=== PATIENT | female | born 1955 | race Caucasian/White ===

== ENCOUNTER 2020-03-12 11:42 | Outpatient (REF) | payer BC, SELFPAY ==
--- NOTE | 2020-03-12 | XR_ITS ---
EXAMINATION: XR SINUSES CLINICAL INFORMATION: Sinus congestion COMPARISON: None TECHNIQUE: The sinuses are imaged in 4 views. FINDINGS: There is no mucosal thickening or polypoid mass or visible air-fluid levels. No sinus expansion or bony thickening or sclerosis is seen. XR/XR sinus min 3V IMPRESSION: Unremarkable examination.
== END 2020-03-12 11:43 | disposition home or self-care (01) ==
LOC: HO.XRAY 11:42
PROVIDERS: PCP Internal Medicine; Visit Provider Internal Medicine
DX: R09.81 Nasal congestion (principal)
CPT/HCPCS: 70220

== ENCOUNTER 2022-08-27 07:23 | Outpatient (AMB) | payer MEDICARE, SELFPAY ==
--- NOTE | 2022-08-27 07:30 | MHC.PC.OV ---
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 Accompanied by: Self / Same As Patient Allergies hydroxyzine [From Atarax] Allergy (Severe, Verified 08/27/22 07:45) shock Medication List - Last Reconciled 08/27/22 by Sabiha Collier MD albuterol sulfate 90 mcg/actuation 2 puffs inhalation Q6H PRN Tobacco use date assessed: 08/27/22 Fall risk assessment: No Falls in past year Last assessed Fall Risk: 08/27/22 Dental Screening Dental Screen Date: 08/27/22 Did you have a dental visit in the last 12 months?: No Did you have a dental problem in the last 6 months where you did not have access to dental care?: No Was dental information given to patient?: Patient has dentist HPI HPI Comments History of Present Illness Details This is a 66-year-old female with mild persistent asthma, pure hypercholesterolemia and history of bladder cancer in 2013 that comes today to establish care. She use rescue inhaler less than once a month trigger by animals. Cholesterol was elevated in 2019 and this will be repeated. Low-cholesterol diet was advised. Has bladder cancer in 2013 and follows with Urology once a year. She also has history of colon polyps and requires colonoscopy every 5 years. Last colonoscopy was less than 5 years ago. Last mammogram was less than a year ago and was normal. No chest pain or shortness of breath. No change in bowel or bladder habits. She had low red blood cell months that will be repeated. Denies any active bleeding. [facility] Surgical History History of appendectomy History of bladder surgery Family History Mother Breast cancer Kidney failure Hypertension Neuralgia Father Lymphoma Social History Housing: House Alcohol intake: current Alcohol intake frequency: holidays/special occasions only Alcohol type: wine Patient Tobacco Use Status: Former Tobacco user Tobacco use type: Cigarette e-Cigarette/Vaping Use: Never Used Second Hand Smoke Exposure: No service: No Current occupational status: retired Cognitive needs: No Hearing needs: No Vision needs: Yes Questionnaire PHQ-9 Over the last 2 weeks, how often have you been bothered by any of the following problems? 1. Little interest or pleasure in doing things: not at all 2. Feeling down, depressed, or hopeless: not at all 3. Trouble falling or staying asleep, or sleeping too much: not at all 4. Feeling tired or having little energy: not at all 5. Poor appetite or overeating: not at all 6. Feeling bad about yourself - or that you are a failure or have let yourself or your family down: not at all 7. Trouble concentrating on things, such as reading the newspaper or watching television: not at all 8. Moving or speaking so slowly that other people could have noticed. Or the opposite - being so fidgety or restless that you have been moving around a lot more than usual: not at all 9. Thoughts that you would be better off or of hurting yourself in some way: not at all Total score: 0 Depression Screening Interpretation: Negative 27128 - PHQ-9 Billing: Yes Source: Developed by Drs. David Velazquez, Cherelle Cervantes, Zen Schumacher and colleagues, with an educational satinder from [email or web address]. Thrive Questionnaire Date Thrive assessed: 08/27/22 I am a: Patient What is your living situation today?: I have a steady place to live Within the past 12 months, did the food you bought not last and you didn't have the money to get more?: Never true Within the past 12 months, did you worry whether your food would run out before you got money to buy more?: Never true Do you have trouble paying for medicines?: No Do you have trouble getting transportation to medical appointments?: No Do you have trouble paying your heating and electricity bill?: No Do you have trouble taking care of your child, family member or friend?: No Do you have trouble with day-to-day activities such as bathing, preparing meals, shopping, managing finances, etc.?: No Are you currently unemployed and looking for a job?: No Are you interested in more education?: No Please select the resources that you would like help with: None Currently or been in a relationship where the following occur: no concerns reported AUDIT C Alcohol Use Questionnaire (AUDIT-C) 1. How often do you have a drink containing alcohol?: Monthly or less 2. How many drinks containing alcohol do you have on a typical day when you are drinking?: 1 or 2 3. How often do you have six or more drinks on one occasion?: Never Total Score: 1 Score Reviewed/Action Taken: No DEVON-7 AMB Questionnaire DEVON-7 Date DEVON - 7 assessed: 08/27/22 Feeling nervous, anxious, or on edge: 0 = Not at all Not being able to stop or control worryin = Not at all Worrying too much about different things: 0 = Not at all Trouble relaxin = Not at all Being so restless that it is hard to sit still: 0 = Not at all Becoming easily annoyed or irritable: 0 = Not at all Feeling afraid as if something awful might happen: 0 = Not at all Total DEVON-7 score (0-4 normal; 5-9 mild; 10-14 moderate; 15-21 severe): 0 Source: Developed by Drs. David Velazquez, Cherelle Cervantes, Zen Schumacher and colleagues, with an educational satinder from [email or web address]. DEVON-7 Assessment Billing DEVON-7 Assessment Tool: DEVON-7 Assessment 61753 Review of Systems Const All systems reviewed & are unremarkable except as noted in HPI and below Eyes Reports no additional complaints, Denies change in vision and Denies other visual disturbances Card Denies chest pain at rest, Denies chest pain with activity, Denies edema, Denies irregular heart rhythm, Denies claudication, Denies dyspnea, Denies dyspnea on exertion, Denies orthopnea, Denies paroxysmal nocturnal dyspnea and Denies slow heart rate Resp Denies cough, Denies dyspnea and Denies dyspnea on exertion GI Denies abdominal pain, Denies change in bowel habits, Denies excessive flatus, Denies nausea and Denies vomiting Denies urinary incontinence, Denies urinary hesitancy and Denies urinary urgency Musc Denies abnormal gait, Denies atrophy, Denies deformity and Denies limited range of motion Skin/Breast Denies bleeding lesions, Denies changing lesions and Denies rash Neuro Denies abnormal gait and Denies lack of coordination Physical exam (Primary Care) Vital Signs: Last Vital Signs BP 130/82 08/27/22 07:35 BMI result Body Mass Index 24.3 Tobacco/Smoking Status: Tobacco use Status Tobacco use date assessed 08/27/22 08/27/22 07:43 Patient Tobacco Use Status Former Tobacco user 08/27/22 07:43 Tobacco use type Cigarette 08/27/22 07:43 e-Cigarette/Vaping Use Never Used 08/27/22 07:43 PHQ-9: PHQ-9 Score PHQ-9: Total score 0 08/27/22 08:00 Depression Screening Interpretation: Negative Thrive Assessment: Date of Thrive Assessment Date Thrive assessed 08/27/22 08/27/22 07:35 Currently or been in a relationship where the following occur: no concerns reported Eyes General: appearance normal, both eyes and all related structures Eyelids: Yes eyelids normal Conjunctivae: conjunctivae normal Neck Neck: Yes normal visual inspection and Yes supple Resp Effort & Inspection: normal respiratory effort Auscultation: clear to auscultation bilaterally Cardio Jugular venous distension: no JVD Rate: regular rate Rhythm: regular rhythm Heart sounds: S1 normal heart sound present and S2 normal heart sound present Extrem General: Yes full ROM Assessment and Plan Assessment & Plan (1) Mild persistent asthma: Code(s): J45.30 - Mild persistent asthma, uncomplicated Plan: Use rescue inhaler as needed. (2) Pure hypercholesterolemia: Code(s): E78.00 - Pure hypercholesterolemia, unspecified Plan: Start low-cholesterol diet. Repeat lipid panel. (3) Bladder cancer: Comment: 2013 Code(s): C67.9 - Malignant neoplasm of bladder, unspecified Plan: Follow-up with Urology. Orders: Orders Vitamin B12 and Folate Today E53.8 - Deficiency of other specified B group vitamins Comprehensive [place]. Panel Fast Today J45.30 - Mild persistent asthma, uncomplicated Lipid Panel Today E78.5 - Hyperlipidemia, unspecified Complete Blood Count Auto Diff Today D64.9 - Anemia, unspecified IRON PROFILE Today D64.9 - Anemia, unspecified Medications: New Ventolin HFA 90 mcg/actuation (albuterol sulfate) 2 puffs inhalation Q6H PRN 18 grams 3RF shortness of breath or wheezing 30 days NS J45.30 - Mild persistent asthma, uncomplicated Coding Level of Care Code New Pt Level 3 (66878) Diagnoses Mild persistent asthma J45.30 Pure hypercholesterolemia E78.00 Bladder cancer C67.9 Additional Codes DEVON-7 Assessment Billing - DEVON-7 Assessment Tool: DEVON-7 Assessment 23080 ([id number]) Time Spent (min) 20
[2022-08-27 07:35] VITALS: BP 130/82; BMI 24.3
== END 2022-08-27 08:03 | disposition home or self-care (01) ==
PROVIDERS: PCP Internal Medicine; Visit Provider Internal Medicine
DX: J45.30 Mild persistent asthma, uncomplicated (principal); E78.00 Pure hypercholesterolemia, unspecified; C67.9 Malignant neoplasm of bladder, unspecified
CPT/HCPCS: 99203

== ENCOUNTER 2022-08-27 07:59 | Outpatient (REF) | payer MEDICARE, SELFPAY ==
[2022-08-27 08:23] LABS: MANUAL DIFF FLAG NO
[2022-08-27 08:51] LABS: Basophils Absolute Auto 0.1 X10*3/uL (0.0-0.2); Basophils Percent Auto 1.3 % (0-2); Eosinophils Absolute Auto 0.2 X10*3/uL (0.0-0.4); Eosinophils Percent Auto 4.4 % (0-4); Hemoglobin 12.4 g/dl (12.0-16.0); Lymphocytes Absolute Auto 1.5 X10*3/uL (1.2-4.9); Lymphocytes Percent Auto 33.3 % (20-40); Mean Corpuscular HGB Conc 32.6 g/dl (31.0-35.0); Mean Corpuscular Hemoglobin 31.9 pg (27.0-33.0); Mean Corpuscular Volume 97.7 fL (80.0-98.0); Mean Platelet Volume 10.2 fL (9.4-12.3); Monocytes Absolute Auto 0.4 X10*3/uL (0.1-1.2); Monocytes Percent Auto 8.3 % (2-11); Neutrophils Absolute Auto 2.4 x10*3/uL (2.0-8.3); Neutrophils Percent Auto 52.7 % (45-73); Platelet Count 274 X10*3/uL (160-400); Red Blood Count 3.89 X10*6/uL (4.20-5.50); Red Cell Distribution Width 12.6 % (11.0-16.0); White Blood Count 4.6 X10*3/uL (4.8-10.8)
[2022-08-27 09:30] LABS: Alanine Aminotransferase 15 U/L (0-31); Albumin Level 4.2 g/dL (3.5-5.0); Alkaline Phosphatase 103 U/L (39-117); Anion Gap 13 (12-20); Aspartate Amino Transferase 16 U/L (5-31); Bilirubin Total 0.4 mg/dL (0.0-1.0); Blood Urea Nitrogen 24 mg/dL (9-16); Calcium 9.5 mg/dL (8.4-10.2); Carbon Dioxide 27 mmol/L (22-29); Chloride 104 mmol/L (96-108); Cholesterol 225 mg/dL; Estimated Glomerular Filt Rate > 60; Glucose Fasting 107 mg/dL (60-99); HDL Cholesterol 87 mg/dL; LDL Cholesterol Calculated 128 mg/dl; Potassium 4.1 mmol/L (3.3-5.1); Sodium 140 mmol/L (135-145); Total Protein 7.7 g/dL (6.5-8.0); Triglycerides 53 mg/dL
[2022-08-27 10:04] LABS: Folate 13.8 ng/mL (> or = 4.0); Vitamin B12 465 pg/mL (200-900)
== END 2022-08-27 08:00 | disposition home or self-care (01) ==
LOC: HO.LAB 07:59
PROVIDERS: PCP Internal Medicine; Visit Provider Internal Medicine
DX: D64.9 Anemia, unspecified (principal); E53.8 Deficiency of other specified B group vitamins; J45.30 Mild persistent asthma, uncomplicated; E78.5 Hyperlipidemia, unspecified
CPT/HCPCS: 36415; 80053; 80061; 82607; 82746; 85025

== ENCOUNTER 2022-12-01 13:13 | Outpatient (AMB) | payer MEDICARE, SELFPAY ==
[2022-12-01 14:06] VITALS: BP 120/70; PULSE 83; TEMP 36.2; O2SAT 98
--- NOTE | 2022-12-01 14:06 | AM.OFFWIN_ITS ---
Intake Vital Signs 12/01/22 14:06 Height 5 ft 2 in BP 120/70 Blood Pressure Location Rt brachial Position Sitting Pulse 83 Pulse Source Pulse Oximeter Temp 97.1 F Temp Source Temporal Artery Scan Pulse Oximetry (%) 98 Oxygen Delivery Method Room Air Intake Visit Reasons: EP RT leg pain (Lobby) Intake Note: patient is here today for pain in rt leg Patient Tobacco Use Status: Former Tobacco user Allergies hydroxyzine [From Atarax] Allergy (Severe, Verified 12/01/22 14:57) shock Medication List - Last Reconciled 12/01/22 by Kishor Jensen MD Ventolin HFA 90 mcg/actuation (albuterol sulfate) 2 puffs inhalation Q6H PRN 30 days NS Do you need a note to return to daycare/school/sports/work: No HPI EP RT leg pain (Lobby) HPI Details 67-year-old female presents to the [facility] for a sick visit. Patient is complaining of right leg pain. She reports that a big dog ran into her last week. Able to walk with no difficulty. She has pain just below the knee. [facility] Surgical History History of appendectomy History of bladder surgery Family History Mother Breast cancer Kidney failure Hypertension Neuralgia Father Lymphoma Social History Housing: House Alcohol intake: current Alcohol intake frequency: holidays/special occasions only Alcohol type: wine Patient Tobacco Use Status: Former Tobacco user Tobacco use type: Cigarette e-Cigarette/Vaping Use: Never Used Second Hand Smoke Exposure: No service: No Current occupational status: retired Cognitive needs: No Hearing needs: No Vision needs: Yes Physical Exam Vital Signs: Last Vital Signs Temp 97.1 F 12/01/22 14:06 Pulse 83 12/01/22 14:06 BP 120/70 12/01/22 14:06 Pulse Ox 98 12/01/22 14:06 Oxygen Delivery Method Room Air 12/01/22 14:06 Extrem Other: Right leg: Knee: Full range of motion. Leg: No visible bruising. Tenderness clear the anterior tibial border. Assessment & Plan Assessment & Plan (1) Contusion of leg, right: Code(s): S80.11XA - Contusion of right lower leg, initial encounter Plan: Reassurance. No x-rays needed. Patient was advised to take anti- inflammatories. If symptoms do not improve to follow-up here. Coding Level of Care Code Est Pt Level 3 (03005) Diagnoses Contusion of leg, right S80.11XA
== END 2022-12-01 15:13 | disposition home or self-care (01) ==
PROVIDERS: PCP Internal Medicine
DX: S80.11XA Contusion of right lower leg, initial encounter (principal)
CPT/HCPCS: 99213

== ENCOUNTER 2023-01-06 13:29 | Outpatient (AMB) | payer MEDICARE, SELFPAY ==
[2023-01-06 13:41] VITALS: BP 124/80; BMI 24.1
--- NOTE | 2023-01-06 13:41 | MHC.PC.OV ---
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 Accompanied by: Self / Same As Patient Allergies hydroxyzine [From Atarax] Allergy (Severe, Verified 01/06/23 13:53) shock Medication List - Last Reconciled 01/06/23 by Sabiha Collier MD Ventolin HFA 90 mcg/actuation (albuterol sulfate) 2 puffs inhalation Q6H PRN 30 days NS Tobacco use date assessed: 08/27/22 Fall risk assessment: No Falls in past year Last assessed Fall Risk: 01/06/23 Dental Screening Dental Screen Date: 01/06/23 Did you have a dental visit in the last 12 months?: Yes Did you have a dental problem in the last 6 months where you did not have access to dental care?: No Was dental information given to patient?: Patient has dentist HPI HPI Comments History of Present Illness Details This is a 67-year-old female with mild persistent asthma pure hypercholesterolemia comes today for follow-up on her conditions. She has rescue inhaler once a month. Cholesterol is elevated and she admits eating eggs every day. I advised to change her diet and repeat lipid panel in 6 months. No chest pain or shortness of breath. PFSH Surgical History History of appendectomy History of bladder surgery Family History Mother Breast cancer Kidney failure Hypertension Neuralgia Father Lymphoma Housing: House Alcohol intake: current Alcohol intake frequency: holidays/special occasions only Alcohol type: wine Patient Tobacco Use Status: Former Tobacco user Tobacco use type: Cigarette e-Cigarette/Vaping Use: Never Used Second Hand Smoke Exposure: No service: No Current occupational status: retired Cognitive needs: No Hearing needs: No Vision needs: Yes Questionnaire Thrive Questionnaire Date Thrive assessed: 08/27/22 DEVON-7 AMB Questionnaire DEVON-7 Date DEVON - 7 assessed: 08/27/22 Source: Developed by Drs. David Velazquez, Cherelle Cervantes, Zen Schumacher and colleagues, with an educational satinder from [facility]. Review of Systems Const All systems reviewed & are unremarkable except as noted in HPI and below Eyes Reports no additional complaints, Denies change in vision and Denies other visual disturbances Card Denies chest pain at rest, Denies chest pain with activity, Denies edema, Denies irregular heart rhythm, Denies claudication, Denies dyspnea, Denies dyspnea on exertion, Denies orthopnea, Denies paroxysmal nocturnal dyspnea and Denies slow heart rate Resp Denies cough, Denies dyspnea and Denies dyspnea on exertion GI Denies abdominal pain, Denies change in bowel habits, Denies excessive flatus, Denies nausea and Denies vomiting Denies urinary incontinence, Denies urinary hesitancy and Denies urinary urgency Musc Denies abnormal gait, Denies atrophy, Denies deformity and Denies limited range of motion Skin/Breast Denies bleeding lesions, Denies changing lesions and Denies rash Neuro Denies abnormal gait and Denies lack of coordination Physical exam (Primary Care) Vital Signs: Last Vital Signs BP 124/80 01/06/23 13:41 BMI result Body Mass Index 24.1 Tobacco/Smoking Status: Tobacco use Status Tobacco use date assessed 08/27/22 01/06/23 13:44 Patient Tobacco Use Status Former Tobacco user 01/06/23 13:44 Tobacco use type Cigarette 01/06/23 13:44 e-Cigarette/Vaping Use Never Used 01/06/23 13:44 Thrive Assessment: Date of Thrive Assessment Date Thrive assessed 08/27/22 01/06/23 13:44 Eyes General: appearance normal, both eyes and all related structures Eyelids: Yes eyelids normal Conjunctivae: conjunctivae normal Neck Neck: Yes normal visual inspection and Yes supple Resp Effort & Inspection: normal respiratory effort Auscultation: clear to auscultation bilaterally Cardio Jugular venous distension: no JVD Rate: regular rate Rhythm: regular rhythm Heart sounds: S1 normal heart sound present and S2 normal heart sound present Extrem General: Yes full ROM Office Procedures Flu Questionnaire Does the patient have a severe egg allergy?: No Immunizations flu vacc [id number] 6mos up(PF) 60 mcg(15 mcgx4)/0.5 mL IM syringe Performing Provider: Sabiha Collier MD [facility] [place] Documented (not given) by: KOFI Canales on 01/06/23 13:46 Reason Not Given: Patient Refused Assessment and Plan Assessment & Plan (1) Mild persistent asthma: Code(s): J45.30 - Mild persistent asthma, uncomplicated Qualifiers: Asthma complication type: uncomplicated Qualified Code(s): J45.30 - Mild persistent asthma, uncomplicated Plan: Use rescue inhaler as needed. (2) Pure hypercholesterolemia: Code(s): E78.00 - Pure hypercholesterolemia, unspecified Plan: Start low-cholesterol diet. Repeat lipid panel in 6 months. Orders: Orders Influenza [id number] Immunization Today Z23 - Encounter for immunization Lipid Panel 6 Months E78.5 - Hyperlipidemia, unspecified Comprehensive [place]. Panel Fast 6 Months E78.00 - Pure hypercholesterolemia, unspecified Coding Level of Care Code Est Pt Level 3 (26773) Diagnoses Mild persistent asthma without complication J45.30 Asthma complication type: uncomplicated Pure hypercholesterolemia E78.00 Time Spent (min) 23
== END 2023-01-06 14:01 | disposition home or self-care (01) ==
PROVIDERS: PCP Internal Medicine; Visit Provider Internal Medicine
DX: J45.30 Mild persistent asthma, uncomplicated (principal); E78.00 Pure hypercholesterolemia, unspecified
CPT/HCPCS: 99213

== ENCOUNTER 2023-06-30 06:08 | Outpatient (REF) | payer MEDICARE, SELFPAY ==
[2023-06-30 12:59] LABS: Alanine Aminotransferase 28 U/L (0-31); Albumin Level 4.4 g/dL (3.5-5.0); Alkaline Phosphatase 99 U/L (39-117); Anion Gap 16 (12-20); Aspartate Amino Transferase 24 U/L (5-31); Bilirubin Total 0.4 mg/dL (0.0-1.0); Blood Urea Nitrogen 32 mg/dL (9-16); Calcium 10.2 mg/dL (8.4-10.2); Carbon Dioxide 27 mmol/L (22-29); Chloride 106 mmol/L (96-108); Cholesterol 239 mg/dL (<200); Estimated Glomerular Filt Rate 53; Glucose Fasting 98 mg/dL (60-99); HDL Cholesterol 96 mg/dL (>40); Iron 107 mcg/dL (30-160); LDL Cholesterol Calculated 131 mg/dL (<100); Percent Iron Saturation 38 % (15-50); Sodium 143 mmol/L (135-145); Total Iron Binding Capacity 281 mcg/dL (228-428); Total Protein 7.9 g/dL (6.5-8.0); Triglycerides 62 mg/dL (<150); Unsaturated Iron Binding 174 ug/dL
--- NOTE | 2023-06-30 15:10 | ECG_ITS ---
Test Reason : HYPERKALEMIA Blood Pressure : / mmHG Vent. Rate : 065 BPM Atrial Rate : 065 BPM P-R Int : 174 ms QRS Dur : 092 ms QT Int : 388 ms P-R-T Axes : 049 020 016 degrees QTc Int : 403 ms Normal sinus rhythm Nonspecific ST abnormality Abnormal ECG No previous ECGs available Referred By: Sabiha Collier Electronically Signed By:EMILY ALARCON MD
== END 2023-06-30 06:09 | disposition home or self-care (01) ==
LOC: HO.HMGCLDS 06:08
PROVIDERS: PCP Internal Medicine; Visit Provider Internal Medicine
DX: D64.9 Anemia, unspecified (principal); E78.00 Pure hypercholesterolemia, unspecified; E87.5 Hyperkalemia
CPT/HCPCS: 36415; 80053; 80061; 83540; 93005

== ENCOUNTER → 2023-06-30 15:10 | Outpatient (BNV) | payer MEDICARE, SELFPAY | PROVIDERS: PCP Internal Medicine; Visit Provider Internal Medicine Cardiovascular Disease | DX: R94.31 Abnormal electrocardiogram [ECG] [EKG] (principal) | CPT/HCPCS: 93010 ==

== ENCOUNTER 2023-07-07 14:39 | Outpatient (REF) | payer MEDICARE, SELFPAY ==
[2023-07-07 14:57] LABS: MANUAL DIFF FLAG NO
[2023-07-07 15:17] LABS: Basophils Absolute Auto 0.1 X10*3/uL (0.0-0.2); Basophils Percent Auto 1.4 % (0-2); Eosinophils Absolute Auto 0.5 X10*3/uL (0.0-0.4); Eosinophils Percent Auto 8.2 % (0-4); Hematocrit 36.9 % (37.0-47.0); Hemoglobin 12.4 g/dl (12.0-16.0); Imm Gran Abs Auto 0.01 X10*3/uL (0.00-0.03); Imm Gran Pct Auto 0.2 % (0.0-0.4); Lymphocytes Absolute Auto 2.3 X10*3/uL (1.2-4.9); Lymphocytes Percent Auto 35.6 % (20-40); Mean Corpuscular HGB Conc 33.6 g/dl (31.0-35.0); Mean Corpuscular Hemoglobin 33.2 pg (27.0-33.0); Mean Corpuscular Volume 98.7 fL (80.0-98.0); Mean Platelet Volume 10.4 fL (9.4-12.3); Monocytes Absolute Auto 0.6 X10*3/uL (0.1-1.2); Monocytes Percent Auto 8.5 % (2-11); Neutrophils Percent Auto 46.1 % (45-73); Platelet Count 282 X10*3/uL (160-400); Red Blood Count 3.74 X10*6/uL (4.20-5.50); Red Cell Distribution Width 12.8 % (11.0-16.0); White Blood Count 6.5 X10*3/uL (4.8-10.8)
[2023-07-07 15:46] LABS: Alanine Aminotransferase 17 U/L (0-31); Albumin Level 4.5 g/dL (3.5-5.0); Alkaline Phosphatase 101 U/L (39-117); Anion Gap 16 (12-20); Aspartate Amino Transferase 19 U/L (5-31); Bilirubin Total 0.3 mg/dL (0.0-1.0); Blood Urea Nitrogen 36 mg/dL (9-16); Calcium 9.8 mg/dL (8.4-10.2); Carbon Dioxide 27 mmol/L (22-29); Chloride 102 mmol/L (96-108); Estimated Glomerular Filt Rate 55; Glucose Random 110 mg/dL (60-115); Potassium 3.8 mmol/L (3.3-5.1); Sodium 141 mmol/L (135-145); Total Protein 7.8 g/dL (6.5-8.0)
[2023-07-07 15:54] LABS: Potassium Urine Random 78.9 mmol/L
[2023-07-07 16:49] LABS: Osmolality, Serum 309 mosm/kg (281-305)
[2023-07-07 16:49] LABS: Osmolality Urine 659 mosm/kg (373-1093)
[2023-07-08 08:00] LABS: HIV AB/AG Nonreactive (Nonreactive); HIV Num 1 0.06 S/CO (0.00-0.99)
[2023-07-17 13:53] LABS: Aldosterone/Renin Ratio 42.3 Ratio (0.9-28.9); Plasma Renin Activity 0.26 ng/mL/h (0.25-5.82)
== END 2023-07-07 14:40 | disposition home or self-care (01) ==
LOC: HO.LAB 14:39
PROVIDERS: PCP Internal Medicine; Visit Provider Internal Medicine
DX: E87.5 Hyperkalemia (principal); E78.00 Pure hypercholesterolemia, unspecified
CPT/HCPCS: 36415; 80053; 82088; 83930; 83935; 84133; 85025; 87389